=== PATIENT | female | born 1980 ===

== ENCOUNTER 2022-02-02 11:01 | Emergency (ER) | payer OTHER ==
[2022-02-02 11:22] VITALS: BP 139/77
--- NOTE | 2022-02-02 12:03 | Emergency Department Report ---
ED General Adult HPI - General Chief complaint: Neuro Symptoms/Deficit Stated complaint: FACIAL PARALYSIS Time Seen by Provider: 02/02/22 11:48 Source: patient Mode of arrival: Ambulatory Limitations: No Limitations - History of Present Illness Initial comments: 42-year-old female that emerge department complaining of a sudden onset of left facial weakness of an unknown etiology which is painless in nature. She reports no loss of bowel or bladder, no saddle paresthesia, no chest pain no palpitation, no headache, no blurred vision no loss of vision, no pain to the ear no tinnitus. -: Sudden Radiation: non-radiation Improves with: none Worsens with: none Associated Symptoms: denies other symptoms Treatments Prior to Arrival: none - Related Data Previous Rx's Medication Instructions Recorded Last Taken Type predniSONE [Deltasone] 20 mg PO BID #10 02/02/22 Unknown Rx Allergies Allergy/AdvReac Type Severity Reaction Status Date / Time Penicillins Allergy Rash Verified 02/02/22 11:15 ED Review of Systems ROS: Stated complaint: FACIAL PARALYSIS Other details as noted in HPI Comment: All other systems reviewed and negative ED Past Medical Hx - Past Medical History Previous Medical History?: Yes Additional medical history: Vaginal delivery x 3 - Surgical History Past Surgical History?: No - Social History Smoking Status: Never Smoker Substance Use Type: None - Medications Home Medications: Home Medications Medication Instructions Recorded Confirmed Last Taken Type predniSONE [Deltasone] 20 mg PO BID #10 02/02/22 Unknown Rx ED Physical Exam - General Limitations: No Limitations General appearance: alert, in no apparent distress - Head Head exam: Present: atraumatic, normocephalic - Expanded Head Exam Expanded 1 - Weakness to this region total facial weakness - Eye Eye exam: Present: normal appearance, PERRL, EOMI Pupils: Present: normal accommodation - ENT ENT exam: Present: normal exam, normal orophraynx, mucous membranes moist, TM's normal bilaterally - Neck Neck exam: Present: normal inspection - Respiratory Respiratory exam: Present: normal lung sounds bilaterally. Absent: respiratory distress - Cardiovascular Cardiovascular Exam: Present: regular rate, normal rhythm. Absent: systolic murmur, diastolic murmur, rubs, gallop - GI/Abdominal GI/Abdominal exam: Present: soft, normal bowel sounds - Extremities Exam Extremities exam: Present: normal inspection - Back Exam Back exam: Present: normal inspection - Neurological Exam Neurological exam: Present: alert, oriented X3, CN II-XII intact, normal gait - Expanded Neurological Exam Expanded Neurological exam: Absent: innattentive, memory loss-remote event, total aphasia, tremor Patient oriented to: Present: person, place, time Speech: Present: fluid speech Cranial nerves: EOM's Intact: Normal, Gag Reflex: Normal, Nystagmus: Normal Cerebellar function: Finger to Nose: Normal, Heel to Muhammad: Normal, Romberg: Normal Motor strength exam: RUE: 5, LUE: 5, RLE: 5, LLE: 5 Best Eye Response ([place]): (4) open spontaneously Best Motor Response (Kieran): (6) obeys commands Best Verbal Response (Kieran): (5) oriented Kieran Total: 15 - Psychiatric Psychiatric exam: Present: normal affect, normal mood - Skin Skin exam: Present: warm, dry, intact, normal color. Absent: rash ED Course Vital Signs 02/02/22 11:15 Temperature 97.7 F Pulse Rate 80 Respiratory 20 Rate Blood Pressure 139/77 O2 Sat by Pulse 99 Oximetry ED Medical Decision Making - Medical Decision Making With acute and painless unilateral left facial paralysis with no forehead sparing most likely secondary to Brink's palsy likely CVA, trigeminal neuralgia, intracranial hemorrhage, botulism, myasthenia gravis Plan we will place her on steroid for 1 week and recommend artificial tears patient is awake. Advised on primary care doctor follow-up within the next week and follow-up with neurologist if symptoms continue to persist after 2 weeks and advised her that recovery can take longer. Since it is within 72 hours of onset will also give prednisone daily for 5 days Critical care attestation.: If time is entered above; I have spent that time in minutes in the direct care of this critically ill patient, excluding procedure time. ED Disposition Clinical Impression: Brink's palsy Disposition: HOME / SELF CARE / HOMELESS Is pt being admited?: No Does the pt Need Aspirin: No Condition: Stable Instructions: Brink Palsy, Adult Prescriptions: predniSONE [Deltasone] 20 mg PO BID #10 Referrals: LINDA HAIRSTON MD [Staff Physician] - 3-5 Days Print Language: BARBADIAN
== END 2022-02-02 12:20 | disposition home or self-care (01) ==
LOC: ED 11:01
DX: G51.0 Bell's palsy (principal); Z88.0 Allergy status to penicillin; Z79.899 Other long term (current) drug therapy
CPT/HCPCS: 99282